=== PATIENT | male | born 1970 | race Hispanic/Latino ===

== ENCOUNTER 2019-09-08 | Emergency (ER) | payer OTHER ==
[2019-09-08] MEDS ORDERED: HYDROCO/APAP1 TA9 PO (13:34)
[2019-09-08] MEDS ORDERED: MOTRIN400 MG PO (13:34)
== END 2019-09-08 14:10 | disposition home or self-care (01) | DRG 563 ==
PROC: 0RSLXZZ Reposition Right Elbow Joint, External Approach (ICD-10-PCS; principal; 2019-09-08)
DX: S53.124A Posterior dislocation of right ulnohumeral joint, initial encounter (principal); W14.XXXA Fall from tree, initial encounter; Y93.89 Activity, other specified; Y92.74 Orchard as the place of occurrence of the external cause; Y99.0 Civilian activity done for income or pay